=== PATIENT | female | born 1960 | race Hispanic/Latino ===

== ENCOUNTER → 2019-01-06 | Outpatient (CLI) | payer MEDICARE | END | disposition home or self-care (01) | LOC: SHCH 09:47 | PROVIDERS: ATTEND Internal Medicine Cardiovascular Disease | DX: I34.0 Nonrheumatic mitral (valve) insufficiency (principal); I11.9 Hypertensive heart disease without heart failure | CPT/HCPCS: 93306 ==

== ENCOUNTER → 2019-07-07 | Outpatient (CLI) | payer OTHER | END | disposition home or self-care (01) | LOC: RAH 09:32 | PROVIDERS: ATTEND Internal Medicine Cardiovascular Disease | DX: Z13.6 Encounter for screening for cardiovascular disorders (principal) | CPT/HCPCS: 75571 ==

== ENCOUNTER → 2021-11-21 | Outpatient (CLI) | payer OTHER ==
[~2021-11-21] VITALS: Ht 15.2 cm; Wt 127.9 kg
== END | disposition home or self-care (01) ==
LOC: DTH 15:42
PROVIDERS: ATTEND Surgery
DX: Z71.3 Dietary counseling and surveillance (principal); I10 Essential (primary) hypertension; E78.5 Hyperlipidemia, unspecified; E78.00 Pure hypercholesterolemia, unspecified; K76.0 Fatty (change of) liver, not elsewhere classified; K21.9 Gastro-esophageal reflux disease without esophagitis; G47.33 Obstructive sleep apnea (adult) (pediatric); M19.91 Primary osteoarthritis, unspecified site; E66.01 Morbid (severe) obesity due to excess calories; Z68.41 Body mass index [BMI] 40.0-44.9, adult
CPT/HCPCS: 97802

== ENCOUNTER 2022-04-05 05:50 | Inpatient (IN) | payer MEDICARE ==
[2022-03-29 13:47] LABS: BASOPHILS % (AUTO) 0.5 % (0.0-5.0); EOSINOPHILS % (AUTO) 0.5 % (0.0-8.0); HEMATOCRIT 40.8 % (36-48); LYMPHOCYTES % (AUTO) 26.6 % (21.0-51.0); MEAN CORPUSCULAR HEMOGLOBIN 32.5 pg (27.0-33.0); MEAN CORPUSCULAR HGB CONC 33.8 g/dL (32.0-36.0); MEAN CORPUSCULAR VOLUME 96.2 fL (79-99); MONOCYTES % (AUTO) 6.6 % (3.0-13.0); NEUTROPHILS % (AUTO) 65.6 % (40.0-77.0); PLATELET COUNT (AUTO) 238 K/uL (130-400); RED BLOOD CELL COUNT(AUTO) 4.24 MIL/uL (4.00-5.50); WHITE BLOOD COUNT (AUTO) 8.8 K/uL (4.8-10.8)
[2022-03-29 13:52] LABS: APPEARANCE,URINE CLEAR (CLEAR); BILIRUBIN,URINE NEGATIVE (NEGATIVE); COLOR,URINE COLORLESS (YELLOW); GLUCOSE, URINE (UA) NEGATIVE (NEGATIVE); KETONES,URINE NEGATIVE (NEGATIVE); LEUKOCYTE ESTERASE ,URINE NEGATIVE Leu/uL (NEGATIVE); NITRATE,URINE NEGATIVE (NEGATIVE); OCCULT BLOOD,URINE NEGATIVE (NEGATIVE); PH,URINE 6.5 (5.0-8.0); PROTEIN,URINE NEGATIVE (NEGATIVE); UROBILINOGEN,URINE 0.2 mg/dL (0.2-1.0)
[2022-03-29 13:55] LABS: CREATININE 0.8 mg/dL (0.5-1.5); POTASSIUM 4.4 mmol/L (3.5-5.1)
[2022-04-04 11:37] VITALS: BP 179/73
[~2022-04-05] VITALS: Ht 167.6 cm; Wt 129.1 kg
[2022-04-05] VITALS (25 sets, daily range): BP systolic 113–179; BP diastolic 56–80
[~2022-04-05 05:50] MED LIST: ALBUHFA IH; ALPR0.5T PO; ASPI-1197 PO; BUPIVACAINE/PF 0.5% 10ML VIAL ONE; CLON0.1T PO; CRANBERRY PO; DEXL60CA3 PO; DEXMEDETOMIDINE HCL 200 MCG/2 ML VIAL IV ONE; DILT240C94 PO; EPINEPHRINE PF 1MG (1:1,000) 1 MG/ML AMP ONE; FLUT1AER IH; FLUTICASONE PO; LEVO5TAB13 PO; METHYLENE BLUE 5 MG/ML AMP ONE; MONT-39 PO; PAZEO OT; RANO500T2 PO; RIME75TA PO; ROSU20TA31 PO; SUCR1TAB2 PO
[2022-04-05] MEDS ORDERED: HEPARIN 5,000 UNIT VIAL SQ SCH ×3 (06:00→21:00)
[2022-04-05] MEDS: CEFOXITIN SODIUM 2 GM VIAL IVP SCH ×2 (06:00→07:28)
[2022-04-05] MEDS: LACTATED RINGERS 1000ML 1,000 ML IV SCH ×4 (06:22→21:11)
[2022-04-05] MEDS ORDERED: ONDANSETRON 4MG INJ ONE ×2 (06:57→08:56)
[2022-04-05] MEDS ORDERED: MIDAZOLAM HCL 1 MG/ML 2ML VIAL ONE (06:57)
[2022-04-05] MEDS ORDERED: PROPOFOL 10 MG/ML 20ML VIAL IV ONE (06:57)
[2022-04-05] MEDS ORDERED: ROCURONIUM 10MG/1ML SYR 10 MG/ML ML ONE ×3 (06:57→08:03)
[2022-04-05] MEDS ORDERED: BUPIVACAINE/PF 0.5% 10ML VIAL IJ SCH (07:00)
[2022-04-05] MEDS ORDERED: KETAMINE 50MG/ML SYRINGE 50 MG/ML DISP.SYRIN IV ONE (07:06)
[2022-04-05] MEDS ORDERED: SCOPOLAMINE HYDROBROMIDE 1 EACH ADH..PATCH TD ONE (07:18)
[2022-04-05] MEDS ORDERED: FENTANYL CITRATE PF 50 MCG/1 ML 5ML AMP IV ONE (07:29)
[2022-04-05] MEDS ORDERED: PHENYLEPHRINE HCL 10 MG/ML 1ML VIAL IV ONE (07:41)
[2022-04-05] MEDS: BUPIVACAINE/EPI/PF 0.5% 30ML VIAL IJ SCH ×2 (08:00→08:05)
[2022-04-05] MEDS ORDERED: BUPIVACAINE/PF 0.5% 30ML VIAL INJ SCH (08:00)
[2022-04-05] MEDS ORDERED: NEOSTIGMINE 5MG/5ML SYR IV ONE (08:49)
[2022-04-05] MEDS ORDERED: GLYCOPYRROLATE 1 MG/5 ML SYRINGE ONE (08:49)
[2022-04-05] MEDS ORDERED: FENTANYL CITRATE PF 50 MCG/1 ML 2ML VIAL ONE (08:56)
[2022-04-05] MEDS ORDERED: APAP/CODEINE 120/12MG 5ML PO PRN (12:30)
[2022-04-05] MEDS ORDERED: PROMETHAZINE HCL 25 MG/ML 1ML AMPULE IM PRN ×4 (12:30)
[2022-04-05] MEDS ORDERED: MEPERIDINE-PF 25 MG/ML SYG IV PRN (12:30)
[2022-04-05] MEDS ORDERED: MORPHINE 2 MG SYG IM PRN ×2 (12:30)
[2022-04-05] MEDS ORDERED: MORPHINE 4 MG SYG IM PRN (12:30)
[2022-04-05] MEDS: HYDROMORPHONE-NS 0.2MG/ML 50ML PCA CASSETTE IV SCH (13:18)
[2022-04-05] MEDS ORDERED: ALPRAZOLAM 0.5 MG TABLET PO SCH (16:30)
[2022-04-05] MEDS ORDERED: MONTELUKAST SODIUM 10 MG TAB PO SCH (16:30)
[2022-04-05] MEDS ORDERED: RIMEGEPANT SULFATE 75 MG PO SCH (16:30)
[2022-04-05] MEDS ORDERED: ALBUTEROL INHALER 90MCG/INH IH SCH (16:30)
[2022-04-05] MEDS ORDERED: PAZEO OT SCH (16:30)
[2022-04-05] MEDS ORDERED: SUCRALFATE 1 GM TABLET PO SCH (16:30)
[2022-04-05] MEDS ORDERED: PHARMACY COMMUNICATION MISC SCH (18:00)
[2022-04-05] MEDS: RANOLAZINE 500 MG TAB.SR.12H PO SCH (20:57)
[2022-04-05] MEDS ORDERED: FAMOTIDINE 20MG VIAL IV SCH (21:00)
[2022-04-05] MEDS ORDERED: (Levocetirizine 5 MG) PO SCH (21:00)
[2022-04-06 00:14] VITALS: BP 138/65
[2022-04-06 04:42] VITALS: BP 134/69
[2022-04-06] MEDS: LACTATED RINGERS 1000ML 1,000 ML IV SCH (05:58)
[2022-04-06 07:30] VITALS: BP 158/73
[2022-04-06] MEDS: HYDROMORPHONE-NS 0.2MG/ML 50ML PCA CASSETTE IV SCH (08:33)
[2022-04-06] MEDS ORDERED: CLONIDINE HCL 0.1 MG TABLET PO SCH (09:00)
[2022-04-06] MEDS ORDERED: DILTIAZEM 120MG SR CAP PO SCH (09:00)
[2022-04-06] MEDS ORDERED: BREO ELLIPTA IH SCH (09:00)
[2022-04-06] MEDS ORDERED: PANTOPRAZOLE 40 MG TAB DR PO SCH (09:00)
[2022-04-06] MEDS ORDERED: FLUTICASONE 50 MCG PO SCH (09:00)
[2022-04-06] MEDS ORDERED: ASPIRIN 81MG CHEW TAB PO SCH (09:00)
[2022-04-06] MEDS: RANOLAZINE 500 MG TAB.SR.12H PO SCH (09:40)
[2022-04-06 09:41] VITALS: BP 158/73
== END 2022-04-06 14:25 | disposition home or self-care (01) | DRG 621 ==
LOC: DAHIP 05:50 → 4DH 10:00
PROVIDERS: ADMIT Surgery; ATTEND Surgery
PROC: 0DB64Z3 Excision of Stomach, Percutaneous Endoscopic Approach, Vertical (ICD-10-PCS; principal; 2022-04-05 07:21)
DX: E66.01 Morbid (severe) obesity due to excess calories (principal); I10 Essential (primary) hypertension; E78.5 Hyperlipidemia, unspecified; Z20.822 Contact with and (suspected) exposure to COVID-19; K21.9 Gastro-esophageal reflux disease without esophagitis; F32.A Depression, unspecified; I25.10 Atherosclerotic heart disease of native coronary artery without angina pectoris; M19.90 Unspecified osteoarthritis, unspecified site; G47.30 Sleep apnea, unspecified; Z68.42 Body mass index [BMI] 45.0-49.9, adult; Z90.49 Acquired absence of other specified parts of digestive tract
CPT/HCPCS: 36415; 80048; 81003; 85025; 87426; G0378; J0171; J0694; J1170; J1644; J2250; J2370; J2405; J2704; J2710; J3010; J3490; J7030; J7120; Q9968

== ENCOUNTER → 2023-06-19 | Outpatient (CLI) | payer MEDICARE ==
[~2023-06-19] MED LIST changes: -BUPIVACAINE/PF 0.5% 10ML VIAL ONE; -DEXMEDETOMIDINE HCL 200 MCG/2 ML VIAL IV ONE; +DILT240C81 PO; -DILT240C94 PO; -EPINEPHRINE PF 1MG (1:1,000) 1 MG/ML AMP ONE; +IOHEXOL 350 MG/ML 100ML INFUS..BTL IV ONE; -METHYLENE BLUE 5 MG/ML AMP ONE; -ROSU20TA31 PO; +ROSU20TA73 PO
== END | disposition home or self-care (01) ==
LOC: RAH 10:35
PROVIDERS: ATTEND Internal Medicine Cardiovascular Disease
DX: I25.10 Atherosclerotic heart disease of native coronary artery without angina pectoris (principal); R06.00 Dyspnea, unspecified; M47.815 Spondylosis without myelopathy or radiculopathy, thoracolumbar region
CPT/HCPCS: 75574; Q9967

== ENCOUNTER → 2023-07-02 | Outpatient (CLI) | payer MEDICARE ==
[~2023-07-02] MED LIST changes: -IOHEXOL 350 MG/ML 100ML INFUS..BTL IV ONE
== END | disposition home or self-care (01) ==
LOC: SHCH 10:35
PROVIDERS: ATTEND Internal Medicine Cardiovascular Disease
DX: I08.0 Rheumatic disorders of both mitral and aortic valves (principal); R06.00 Dyspnea, unspecified
CPT/HCPCS: 93306

== ENCOUNTER → 2023-09-05 | Outpatient (CLI) | payer MEDICARE | END | disposition home or self-care (01) | LOC: RAH 13:02 | PROVIDERS: ATTEND Specialist | DX: R13.10 Dysphagia, unspecified (principal); R63.30 Feeding difficulties, unspecified | CPT/HCPCS: 74230; 92611 ==

== ENCOUNTER 2023-09-12 15:47 | Emergency (ER) | payer MEDICARE ==
[~2023-09-12] VITALS: Ht 167.6 cm; Wt 100.2 kg
[2023-09-12 17:10] VITALS: BP 136/66; PULSE 66; RESP 14; O2SAT 95
== END 2023-09-12 17:53 | disposition home or self-care (01) ==
LOC: EDH 15:47
DX: M79.89 Other specified soft tissue disorders (principal); E11.9 Type 2 diabetes mellitus without complications; M79.7 Fibromyalgia; I25.10 Atherosclerotic heart disease of native coronary artery without angina pectoris; M79.662 Pain in left lower leg; M79.661 Pain in right lower leg; Z79.899 Other long term (current) drug therapy; Z90.49 Acquired absence of other specified parts of digestive tract; Z96.653 Presence of artificial knee joint, bilateral; Z98.890 Other specified postprocedural states
CPT/HCPCS: 93970

== ENCOUNTER 2023-11-11 05:50 | Day surgery (SDC) | payer MEDICARE ==
[2023-11-06 13:53] LABS: BASOPHILS # (AUTO) 0.04 K/uL (0.00-0.20); BASOPHILS % (AUTO) 0.7 % (0.0-5.0); EOSINOPHILS # (AUTO) 0.04 K/uL (0.00-0.70); EOSINOPHILS % (AUTO) 0.7 % (0.0-8.0); IMMATURE GRANULOCYTE ABSOLUTE 0.01 K/uL (0-1); LYMPHOCYTES % (AUTO) 33.3 % (21.0-51.0); MEAN CORPUSCULAR HEMOGLOBIN 35.5 pg (27.0-33.0); MEAN CORPUSCULAR HGB CONC 32.8 g/dL (32.0-36.0); MONOCYTES # (AUTO) 0.5 K/uL (0.1-1.0); MONOCYTES % (AUTO) 7.5 % (3.0-13.0); NEUTROPHILS # (AUTO) 3.5 K/uL (1.8-7.7); NEUTROPHILS % (AUTO) 57.6 % (40.0-77.0); PLATELET COUNT (AUTO) 157 K/uL (130-400); RED BLOOD CELL COUNT(AUTO) 3.61 MIL/uL (4.00-5.50); RED CELL DISTRIBUTION WIDTH 13.2 % (11.0-15.5)
[2023-11-06 14:04] LABS: INR 0.96 (0.85-1.15); PROTHROMBIN TIME 11.4 SEC (9.6-11.6)
[2023-11-06 14:05] LABS: ALBUMIN 3.2 g/dL (3.5-5.0); CARBON DIOXIDE 27 mmol/L (21-32); CHLORIDE 106 mmol/L (101-111); CREATININE 0.8 mg/dL (0.5-1.0); GLOMERULAR FILTR. RATE CALC 83 mL/min (>90); GLUCOSE,RANDOM 88 mg/dL (70-105); PARTIAL THROMBOPLASTIN TIME 24.1 SEC (26.3-35.5); POTASSIUM 4.7 mmol/L (3.5-5.1); SODIUM SERUM 140 mmol/L (136-145); UREA NITROGEN, BLOOD 17 mg/dL (7-18)
[2023-11-06 14:44] VITALS: BP 176/93; PULSE 59; RESP 18
[2023-11-06 15:11] LABS: ERYTHROCYTE SEDIMENTATION RATE 7 MM/HR (0-30)
[~2023-11-11] VITALS: Ht 167.6 cm; Wt 105.2 kg
[2023-11-11] VITALS (18 sets, daily range): BP systolic 111–125; BP diastolic 44–66; PULSE 54–61; RESP 14–18
[~2023-11-11 05:50] MED LIST changes: -ALBUHFA IH; +APIX5TAB PO; +BACL10TA PO; +CARBINOXAMINE PO; +CELE-125 PO; +DAPA10TA PO; +ESCI20TA38 PO; +FLUO40CA49 PO; -FLUT1AER IH; +FLUTICASONE NASAL; -FLUTICASONE PO; +GABA300C PO; +MECL-226 PO; +METO10TA41 PO; +NITR0.4T50 SL; +PATADAY OU; -PAZEO OT; +PRAM0.258 PO; +REVE175V IH; +SEMA0.258 SQ; +TRELEGY IH; +[UNRECOGNIZED DRUG - OTHER] OTIC; +budesonide IH
[2023-11-11] MEDS ORDERED: ACETAMINOPHEN 1,000 MG/100 ML VIAL IV ONE (06:43)
[2023-11-11] MEDS: 0.9%NACL 1000ML 1,000 ML IV ONE (06:44)
[2023-11-11] MEDS ORDERED: FAMOTIDINE 20MG VIAL IV ONE (06:44)
[2023-11-11] MEDS ORDERED: EPINEPHRINE PF 1MG (1:1,000) 1 MG/ML AMP ONE (06:45)
[2023-11-11] MEDS: CEFAZOLIN SODIUM 2 GM VIAL ONE (06:45)
[2023-11-11] MEDS ORDERED: ROCURONIUM BROMIDE 10MG/1ML 5ML VL ONE (06:54)
[2023-11-11] MEDS ORDERED: LIDOCAINE PF 100MG/5ML (2%) SYRINGE 5ML ONE (06:54)
[2023-11-11] MEDS ORDERED: PROPOFOL 10 MG/ML 20ML VIAL IV ONE (06:54)
[2023-11-11] MEDS ORDERED: FENTANYL CITRATE PF 50 MCG/1 ML 2ML VIAL ONE (06:55)
[2023-11-11] MEDS ORDERED: KETAMINE 50MG/ML SYRINGE 50 MG/ML DISP.SYRIN ONE (06:58)
[2023-11-11] MEDS ORDERED: ONDANSETRON 4MG INJ ONE (07:22)
[2023-11-11] MEDS ORDERED: DEXAMETHASONE SOD PHOSPHATE 10MG/ML 1ML VIAL ONE (07:22)
[2023-11-11] MEDS ORDERED: GLYCOPYRROLATE 0.2 MG/ML 5 ML VIAL ONE (07:28)
[2023-11-11] MEDS ORDERED: EPHEDRINE SULFATE 50 MG/ML AMPULE ONE (07:30)
[2023-11-11] MEDS ORDERED: NEOSTIGMINE METHYLSULFATE 1MG/ML IV ONE (07:51)
[2023-11-11] MEDS: BUPIVACAINE/PF 0.25% 30ML VIAL IJ ONE (08:22)
[2023-11-11] MEDS ORDERED: ACET-2079 PO (08:52)
[2023-11-11] MEDS: MEPERIDINE-PF 25 MG/ML SYG ONE (08:59)
== END 2023-11-11 10:28 | disposition home or self-care (01) ==
LOC: DAH 05:50
PROVIDERS: ATTEND Student in an Organized Health Care Education/Training Program
DX: M25.862 Other specified joint disorders, left knee (principal); M25.562 Pain in left knee; M67.262 Synovial hypertrophy, not elsewhere classified, left lower leg; E11.9 Type 2 diabetes mellitus without complications; K21.9 Gastro-esophageal reflux disease without esophagitis; F41.9 Anxiety disorder, unspecified; E78.5 Hyperlipidemia, unspecified; M19.90 Unspecified osteoarthritis, unspecified site; E66.9 Obesity, unspecified; I49.3 Ventricular premature depolarization; Z96.653 Presence of artificial knee joint, bilateral; Z90.49 Acquired absence of other specified parts of digestive tract; Z98.890 Other specified postprocedural states; Z98.84 Bariatric surgery status; Z86.16 Personal history of COVID-19; Z82.3 Family history of stroke; Z82.49 Family history of ischemic heart disease and other diseases of the circulatory system; Z88.0 Allergy status to penicillin; Z88.8 Allergy status to other drugs, medicaments and biological substances; Z79.01 Long term (current) use of anticoagulants; Z79.899 Other long term (current) drug therapy; Z68.35 Body mass index [BMI] 35.0-35.9, adult
CPT/HCPCS: 82040; 80048; 85025; 85610; 85730; 85651; 84134; 86140; 36415; 87641; 29875; 93005; 82948 ×2; J0665; A4663; J3490 ×5; J3010; J1100; J7030; J2001; J0171; J2704; J2405; J2710; J2175; J0690; A6223; A4649; A5120; A4215; A4223; A4222; A4221; A6450

== ENCOUNTER → 2024-01-15 | Outpatient (CLI) | payer MEDICARE ==
[~2024-01-15] MED LIST changes: +ACET-2079 PO; -ALPR0.5T PO
== END | disposition home or self-care (01) ==
LOC: RAH 13:40
PROVIDERS: ATTEND Student in an Organized Health Care Education/Training Program
DX: T84.84XA Pain due to internal orthopedic prosthetic devices, implants and grafts, initial encounter (principal); M25.561 Pain in right knee; Y82.8 Other medical devices associated with adverse incidents
CPT/HCPCS: 78315; A9503

== ENCOUNTER → 2024-02-18 | Outpatient (CLI) | payer MEDICARE ==
[2024-02-18 17:22] LABS: APPEARANCE BODY FLUID CLOUDY (CLEAR); BODY FLUID RBC 7621 /cu. mm.; BODY FLUID WBC 631 /cu. mm.; COLOR,BODY FLUID ORANGE (LT YELLOW); SPECIMENTYPE,BODY FLUID SYNOVIAL; TOTAL VOLUME,BODY FLUID 30 mL
[2024-02-18 17:59] LABS: BF LYMPHOCYTE 8 %; BF MACROPHAGE 22; BF MONOCYTE 2 %; BF TOTAL CELLS COUNTED 100
== END | disposition home or self-care (01) ==
LOC: LAB 15:17
PROVIDERS: ATTEND Nurse Practitioner
DX: T84.84XA Pain due to internal orthopedic prosthetic devices, implants and grafts, initial encounter (principal); M25.461 Effusion, right knee; Y71.2 Prosthetic and other implants, materials and accessory cardiovascular devices associated with adverse incidents; Y92.89 Other specified places as the place of occurrence of the external cause
CPT/HCPCS: 87070; 87076; 87205; 89051

== ENCOUNTER → 2024-07-09 | Outpatient (CLI) | payer MEDICARE ==
[~2024-07-09] MED LIST changes: -ROSU20TA73 PO; +ROSU20TA98 PO
--- NOTE | 2024-07-09 12:32 | HMCIMG ---
BONE DENSITOMETRY: HISTORY: POSTMENOPAUSAL Comparison: None FINDINGS: BMD measured at AP spine L1-L4 is 0.982 g/cm2 with a T-score of -0.6 Bone density is up to 10% below young normal. This patient is considered normal according to WHO criteria. Fracture risk is low. BMD measured at Left Femoral Neck is 0.617 g/cm2 with a T-score of -2.2 Bone density is between 10 and 25% below young normal. This patient is considered osteopenic. Fracture risk is moderate. BMD measured at Left Femoral Total is -0.764 g/cm2 with a T-score of -1.5 Bone density is between 10 and 25% below young normal. This patient is considered osteopenic. Fracture risk is moderate. IMPRESSION: Osteopenia. Treatment and follow-up recommended.
== END | disposition home or self-care (01) ==
LOC: RAH 10:59
PROVIDERS: ATTEND Internal Medicine
DX: M85.852 Other specified disorders of bone density and structure, left thigh (principal); Z78.0 Asymptomatic menopausal state
CPT/HCPCS: 77080

== ENCOUNTER → 2025-01-07 | Outpatient (CLI) | payer MEDICARE, MEDICAID ==
[~2025-01-07] MED LIST changes: -ACET-2079 PO; +ALPR0.5T8 PO; +BUDE0.5A3 NEB; +CARB4TAB PO; -CARBINOXAMINE PO; -CELE-125 PO; -CLON0.1T PO; -CRANBERRY PO; +CYCL-309 PO; +DOCU-116 PO; +FERR324T10 PO; -FLUO40CA49 PO; +FLUT1BLS3 IH; -FLUTICASONE NASAL; +FOLI1 PO; +HYDR-4060 PO; +LEVA15HF3 IH; -MECL-226 PO; -NITR0.4T50 SL; -PATADAY OU; -REVE175V IH; -RIME75TA PO; -SEMA0.258 SQ; -TRELEGY IH; -[UNRECOGNIZED DRUG - OTHER] OTIC; -budesonide IH
== END | disposition home or self-care (01) ==
LOC: RAH 13:28
PROVIDERS: ATTEND Internal Medicine Cardiovascular Disease
DX: I34.81 Nonrheumatic mitral (valve) annulus calcification (principal); R06.09 Other forms of dyspnea; R07.9 Chest pain, unspecified
CPT/HCPCS: 93306

== ENCOUNTER → 2025-03-30 | Outpatient (CLI) | payer MEDICARE, MEDICAID ==
[2025-03-30] MEDS: REGADENOSON 0.4 MG/5 ML PF SYG IVP ONE (14:36)
== END | disposition home or self-care (01) ==
LOC: RAH 10:59
PROVIDERS: ATTEND Internal Medicine Cardiovascular Disease
DX: R07.9 Chest pain, unspecified (principal); R06.09 Other forms of dyspnea
CPT/HCPCS: 78452; 93017; J2785; A9500 ×2